=== PATIENT | male | born 1945 | race Asian ===

== ENCOUNTER 2019-08-04 13:52 | Emergency (ER) | payer MEDICARE ==
[~2019-08-04] VITALS: Ht 185.4 cm; Wt 81.6 kg
--- NOTE | 2019-08-04 13:52 | NUR ---
Patient BIBA ALS accompanied by Maru pinto [facility], transferred to bed 6. RN evaluating patient at bedside.
[2019-08-04 13:59] VITALS: BP 174/65
--- NOTE | 2019-08-04 14:10 | NUR ---
73 Y/O BIBA WITH C/O NEAR SYNCOPE AT HOME. PT CALLED THE AMBULANCE. PT DENIES N/V/F OR PAIN. PT STATES THAT HE WAS OUT SHOPPING, RETURNED AND FELT LIKE HE WAS GOING TO FAINT. PT PLACED ON MONITIR AND O2, BED LOWERED FOR COMFORT, SIDE RAIL X2 IN PLACE. AT BEDSIDE.
[2019-08-04] MEDS ORDERED: CARV3.12 PO (14:30)
[2019-08-04] MEDS ORDERED: MECLIZINE 25 MG TAB PO ONE (14:30)
[2019-08-04] MEDS ORDERED: ONDANSETRON 4 MG/2 ML VIAL IVP ONE (14:30)
[2019-08-04] MEDS ORDERED: ASPI-1718 PO (14:32)
[2019-08-04] MEDS ORDERED: TAMS0.4C96 PO (14:33)
[2019-08-04] MEDS ORDERED: PRED5TAB7 PO (14:34)
[2019-08-04] MEDS ORDERED: [UNRECOGNIZED DRUG - CODE] PO (14:35)
[2019-08-04] MEDS ORDERED: FAMO-90 PO (14:35)
[2019-08-04] MEDS ORDERED: TACR1CAP10 PO (14:36)
[2019-08-04] MEDS ORDERED: LIP80 PO (14:37)
--- NOTE | 2019-08-04 14:56 | NUR ---
XRAY AT BEDSIDE.
--- NOTE | 2019-08-04 15:06 | NUR ---
PT TO CT BY WHEELCHAIR.
[2019-08-04 15:54] LABS: BILIRUBIN,URINE NEGATIVE (NEGATIVE); BLOOD, URINE NEGATIVE (NEGATIVE); COLOR,URINE YELLOW (YELLOW); LEUKOCYTE ESTERASE ,URINE NEGATIVE (NEGATIVE); NITRITE, URINE NEGATIVE (NEGATIVE); UGLUCOSE NEGATIVE (NEGATIVE)
[2019-08-04 15:55] LABS: BASOPHILS # (AUTO) 0.1 K/uL (0.00-0.22); BASOPHILS % (AUTO) 0.9 % (0.0-2.0); EOSINOPHILS # (AUTO) 0.1 K/uL (0-0.4); EOSINOPHILS % (AUTO) 1.3 % (0.0-4.0); HEMOGLOBIN 14.4 g/dL (12.0-18.0); LYMPHOCYTES # (AUTO) 1.1 K/uL (2.0-11.5); MEAN CORPUSCULAR HEMOGLOBIN 30 pg (27-31); MEAN CORPUSCULAR HGB CONC 32 g/dL (33-37); MEAN CORPUSCULAR VOLUME 92.2 fL (80-94); MONOCYTES # (AUTO) 0.5 K/uL (0.8-1.0); MONOCYTES % (AUTO) 8.1 % (1.7-9.3); NEUTROPHILS # (AUTO) 4.7 K/uL (1.8-7.7); NEUTROPHILS % (AUTO) 72.7 % (42.2-75.2); PLATELET COUNT (AUTO) 199 K/uL (140-450); RED BLOOD CELL COUNT(AUTO) 4.88 MIL/uL (4.20-6.10); RED CELL DISTRIBUTION WIDTH 14.4 % (11.6-13.7); WHITE BLOOD COUNT (AUTO) 6.5 K/uL (4.8-10.8)
[2019-08-04 15:55] LABS: APPEARANCE,URINE HAZY (CLEAR)
[2019-08-04 16:08] LABS: RBC,URINE 0 /HPF (0-5); WBC,URINE 0-5 /HPF (0-5)
[2019-08-04 16:14] LABS: ACETONE, SERUM NEGATIVE (NEGATIVE)
[2019-08-04 16:26] LABS: CARBON DIOXIDE 27.7 mmol/L (21-32); CHLORIDE 105 mmol/L (98-107); CREATININE 0.9 mg/dL (0.7-1.3); GLUCOSE 104 mg/dL (74-106); POTASSIUM 4.7 mmol/L (3.5-5.1); SODIUM SERUM 144 mmol/L (136-145); UREA NITROGEN, BLOOD 17 mg/dL (7-18)
[2019-08-04 16:38] LABS: ALBUMIN 3.9 g/dL (3.4-5.0); AMYLASE 52 U/L (25-115); ASPARTATE AMINOTRANSFERASE 20 U/L (15-37); LIPASE 140 U/L (73-393); MAGNESIUM 1.8 mg/dL (1.8-2.4); TOTAL BILIRUBIN 0.7 mg/dL (0.0-1.0)
[2019-08-04 17:37] VITALS: BP 189/82
--- NOTE | 2019-08-04 17:37 | NUR ---
IV removed, catheter intact and site benign. Applied folded 4x4 gauze and tape to stop bleeding.
--- NOTE | 2019-08-04 17:37 | NUR ---
Patient discharged with v/s stable. Written and verbal after care instructions given and explained. Patient verbalized understanding. Patient w/c assisted to car by myself and assisted into car . All questions addressed prior to discharge. Advised to follow up with PMD.
== END 2019-08-04 17:37 | disposition home or self-care (01) ==
LOC: MED 13:52
DX: R55 Syncope and collapse (principal); R53.1 Weakness; R42 Dizziness and giddiness; R93.0 Abnormal findings on diagnostic imaging of skull and head, not elsewhere classified; E11.9 Type 2 diabetes mellitus without complications; I10 Essential (primary) hypertension; Z98.890 Other specified postprocedural states; Z79.82 Long term (current) use of aspirin; Z79.899 Other long term (current) drug therapy; Z88.8 Allergy status to other drugs, medicaments and biological substances
CPT/HCPCS: 36415; 36600; 70450; 71045; 80053; 81001; 82009; 82150; 82803; 83690; 83735; 84484; 85025; 85610; 93005; 99284; J8597; Q0092; J2405